=== PATIENT | male | born 1995 | race Caucasian/White ===

== ENCOUNTER 2023-12-23 23:44 | Inpatient (IN) | payer OTHER, SELFPAY ==
[2023-12-23 20:24] VITALS: BP 146/95
[2023-12-23 21:21] LABS: % Basophils 0.4 % (0-2); % Eosinophils 0.9 % (0-6); % Immature Granulocytes 0.3 % (0-0.5); % Lymphocytes 16.5 % (20.5-51.1); % Monocytes 6.3 % (1.7-9.3); % Neutrophils 75.6 % (42.2-75.2); Absolute Eosinophils 0.1 10^3/uL (0-0.7); Absolute Lymphocytes 1.7 10^3/uL (1.2-3.4); Absolute Monocytes 0.7 10^3/uL (0.1-0.6); Absolute Neutrophils 7.9 10^3/uL (1.4-6.5); Hematocrit 45.6 % (39.0-52.0); Hemoglobin 15.9 g/dL (13.0-18.0); Mean Corp Hgb Conc. 34.9 g/dL (33.0-37.0); Mean Corpuscular Hgb 31.5 pg (27.0-31.0); Mean Corpuscular Volume 90.3 fL (80.0-94.0); Mean Platelet Volume 10.5 fL (7.4-10.4); Nucleated Red Blood Cells % 0 % (-); Platelet Count 221 10^3/uL (130-400); Red Blood Cell Count 5.05 10^6/uL (4.70-6.10); Red Cell Dist. Width 12.9 % (11.5-14.5); White Blood Cell Count 10.4 10^3/uL (4.8-10.8)
[2023-12-23 21:28] VITALS: BP 135/70
[2023-12-23 21:31] LABS: INR 1.21; PT 15.3 Sec (11.4-14.6)
[2023-12-23 21:32] LABS: APTT 31.9 Sec (23.4-35.0)
[2023-12-23 21:36] LABS: ALT (SGPT) 44 U/L (0-50); AST (SGOT) 35 U/L (17-59); Albumin 3.9 g/dl (3.5-5.0); Alkaline Phosphatase 64 U/L (38-126); Blood Urea Nitrogen 22 mg/dl (9-20); Calcium 9.1 mg/dl (8.4-10.2); Carbon Dioxide 27 mmol/L (22-30); Chloride 98 mmol/L (98-107); Glucose 123 mg/dl (70-99); Potassium 4.1 mmol/L (3.5-5.1); Sodium 131 mmol/L (135-145); Total Bilirubin 0.8 mg/dl (0.2-1.3); eGFR > 60.00
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
[2023-12-23] MEDS: NSS 1000 IV (23:00)
[2023-12-23] MEDS: DILAUDID 1 MG IV (23:02)
[2023-12-23 23:17] VITALS: BMI 28.3
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
[2023-12-23] MEDS: HEPARIN 7400 UNITS IV (23:53)
[2023-12-24] VITALS (8 sets, daily range): BP systolic 109–145; BP diastolic 46–88; BMI 28.6
[2023-12-24] MEDS: HEPARIN 25000 UNITS/250 ML IV
[2023-12-24] MEDS: BENADRYL 50 MG IV (00:31)
[2023-12-24] MEDS: PEPCID 20 MG IV (00:31)
[2023-12-24] MEDS: DECADRON 10 MG IV (00:36)
[2023-12-24] MEDS: XOPENEX 1.25 MG INHALANT SOLUTION INH (00:38)
[2023-12-24] MEDS: ZOFRAN 4 MG IV (00:38)
--- NOTE | 2023-12-24 00:38 | W.PN.UPDATE ---
Update Note
Progress Note Update
immediately following heparin bolus patient turned bright red and stated he was having increasing chest pain. He became bradycardic to 40's in setting of significant nausea then tachycardic with EKG showing afib. BP stable.
concern for allergic reaction following heparin triggering vasovagal reaction and then atrial fibrillation. patient clenched and anxious. Oxygen needs up to 6L.
EKG confirming atrial fibrillation.
-benadryl/pepcid/decadron given now
-levalbuterol x 1
-with afib to RVR in 160's, no lip swelling or wheezing will avoid IM epi; BP stable
-discussed with pharmacy, want to avoid heparin products given this reaction. Given PE is subsegmental, will order Eliquis now. Per pharmacy OK to given Eliquis now with timing post bolus as is very short acting.
-IV metop given afib with RVR to 160's
-add on TSH, TTE
-continue Eliquis
-heparin listed as an allergy
-monitor closely if need for repeat CT although initial showed subsegmental, doubt significant extension; no e/o LE swelling.
Total Critical Care Time 45 minutes. I was immediately available to the patient and staff. I personally examined, reviewed labs, diagnostic images/reports, interpretations, treatment plans, discussed patient care with other providers and family
or caregivers (if patient is unable to make decisions), entered orders as appropriate and documented the medical record.
[2023-12-24] MEDS: DILAUDID 0.5 MG IV (00:39)
[2023-12-24] MEDS: NSS 500 IV (00:42)
[2023-12-24] MEDS: PROTONIX IV 40 MG IV (00:48)
[2023-12-24] MEDS: LOPRESSOR 5 MG IV (00:48)
[2023-12-24] MEDS: ELIQUIS 10 MG PO ×3 (01:23→20:11)
--- NOTE | 2023-12-24 01:28 | PTCARENOTE ---
Pt arrived from ED via wheelchair and was able to stand and pivot to bed. Pt AAOx3, in afib on tele monitor, hr 140's. Converted into sinus tach after 5 minutes hr maintaining 100's. Pt sating 88% on rm, RN applied 2L NC sating 93%. Other VSS. Pt is
oriented to room resting comfortably w/ call roberts within reach.
[2023-12-24] MEDS: PERCOCET 5/325 1 TABLET PO ×2 (02:07→17:33)
--- NOTE | 2023-12-24 08:05 | W.PN.UPDATE ---
Update Note
Progress Note Update
I am aware of PE--pt seen this am
Pt comfortable now
R MARCE Gibson and I
Please leave this on until seen by me next week
Thanks
GGMD
[2023-12-24 08:20] LABS: Hematocrit 42.5 % (39.0-52.0); Hemoglobin 14.6 g/dL (13.0-18.0); Mean Corp Hgb Conc. 34.4 g/dL (33.0-37.0); Mean Corpuscular Hgb 31.3 pg (27.0-31.0); Mean Corpuscular Volume 91.2 fL (80.0-94.0); Red Blood Cell Count 4.66 10^6/uL (4.70-6.10); Red Cell Dist. Width 13.1 % (11.5-14.5); White Blood Cell Count 9.4 10^3/uL (4.8-10.8)
[2023-12-24 08:33] LABS: Blood Urea Nitrogen 22 mg/dl (9-20); Calcium 9.3 mg/dl (8.4-10.2); Carbon Dioxide 24 mmol/L (22-30); Chloride 103 mmol/L (98-107); Estimated Creatinine Clearance 97 ml/min; Glucose 130 mg/dl (70-99); Potassium 5.1 mmol/L (3.5-5.1); Sodium 136 mmol/L (135-145); eGFR > 60.00
[2023-12-24 09:20] LABS: Mean Platelet Volume 10.6 fL (7.4-10.4)
[2023-12-24 09:21] LABS: Platelet Count 90 10^3/uL (130-400)
[2023-12-24] MEDS: APRESOLINE 10 MG PO (09:32)
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
[2023-12-24] MEDS: HYDROPHOR 1 APPLIC TOPICAL (11:03)
--- NOTE | 2023-12-24 12:05 | PTCARENOTE ---
Patient's IV hanging out of left AC. IV removed and band-aid placed. Patient refuses to have another IV line placed.
[2023-12-24] MEDS: LOPRESSOR 12.5 MG PO ×2 (13:47→20:11)
--- NOTE | 2023-12-24 14:17 | VNURNOTE ---
Home Health Liaison met with patient and mom at 1245 to discuss [facility] nurse/therapy, visits, schedule and homebound status. Patient is agreeable and understands that visits at home will be 2-3 x per week to assess and teach medical management
although reluctant. Patient's mother is most interested because now patient is home and she is overwhelmed.
[facility] brochure provided with contact information. Patient is aware that [facility] will contact them for start of care in 1-2 days after discharge from .
[facility] referral completed in [facility]
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
--- NOTE | 2023-12-24 17:47 | PTCARENOTE ---
Went into patient's room because tele monitor was off. Mother in room. Mother states he is in shower. Came back to attempt to put tele monitor back on and patient refused. Tech went in later to place tele monitor and patient adamantly refused.
Salvador made aware.
--- NOTE | 2023-12-24 20:05 | PTCARENOTE ---
Patient did not supply urine specimen today. Patient using bathroom. Patient is aware that a urine specimen is needed.
[2023-12-25 03:57] VITALS: BP 132/68
[2023-12-25] MEDS: PERCOCET 5/325 1 TABLET PO (06:25)
[2023-12-25 06:48] LABS: Hematocrit 43.9 % (39.0-52.0); Hemoglobin 15.1 g/dL (13.0-18.0); Mean Corp Hgb Conc. 34.4 g/dL (33.0-37.0); Mean Corpuscular Hgb 31.3 pg (27.0-31.0); Mean Corpuscular Volume 91.1 fL (80.0-94.0); Mean Platelet Volume 11.2 fL (7.4-10.4); Platelet Count 153 10^3/uL (130-400); Red Blood Cell Count 4.82 10^6/uL (4.70-6.10); Red Cell Dist. Width 12.9 % (11.5-14.5); White Blood Cell Count 10.6 10^3/uL (4.8-10.8)
[2023-12-25 06:53] LABS: APTT 31.6 Sec (23.4-35.0)
[2023-12-25] MEDS: ELIQUIS 10 MG PO (07:31)
[2023-12-25] MEDS: LOPRESSOR 12.5 MG PO (07:31)
[2023-12-25] MEDS: HYDROPHOR 1 APPLIC TOPICAL (07:32)
[2023-12-25 07:57] VITALS: BP 129/65
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
--- NOTE | 2023-12-25 10:07 | W.DS.TRANS ---
DC Summary - [employer]
-
Discharge Instructions:
Discharge Diagnosis/Procedures Pulmonary embolism.
Paroxysmal atrial fibrillation.
Diet Regular
Instructions:
Stand-Alone Forms:
Changes to Home Medications: Yes
Discharge Medications:
DC Medications w/original date entered in [facility]
Vitamin C 1 tab PO DAILY Supplement 12/23/23
baclofen 2 tab PO Q4HPRN PRN moderate pain 12/23/23
gabapentin 4 tab PO Q4HPRN PRN moderate pain 12/23/23
oxycodone-acetaminophen 5 mg-325 mg tablet 1 tab PO Q4HPRN PRN moderate to severe pain 12/23/23
apixaban 5 mg tablet (Eliquis) 10 mg (2 x 5 mg) PO BID #90 tabs 12/24/23
metoprolol tartrate 25 mg tablet 12.5 mg (1/2 x 25 mg) PO BID #60 tabs 12/24/23
Home Medication Changes
Metoprolol, Eliquis.
Pending Results: No
--- NOTE | 2023-12-25 10:49 | PTCARENOTE ---
Reviewed discharge instructions with patient. Patient verbalizes understanding and denies questions at this time. Case management notified to check the cost of Eloquis. Medication sheets given yesterday on Eloquis and Topral. Denies further
questions about medications.
== END 2023-12-25 11:00 | disposition home health service (06) | DRG 176 ==
LOC: 4 EAST ACU 23:44
PROVIDERS: Physician Assistant Medical; ADMITTING PHYSICIAN Student in an Organized Health Care Education/Training Program; ATTENDING PHYSICIAN Internal Medicine; EMERGENCY PHYSICIAN Emergency Medicine; FAMILY PHYSICIAN Internal Medicine
DX: I26.99 Other pulmonary embolism without acute cor pulmonale (principal); R07.81 Pleurodynia; I10 Essential (primary) hypertension; I48.0 Paroxysmal atrial fibrillation; V29.99XA Rider (driver) (passenger) of other motorcycle injured in unspecified traffic accident, initial encounter; Y93.9 Activity, unspecified; Y92.410 Unspecified street and highway as the place of occurrence of the external cause; R61 Generalized hyperhidrosis
CPT/HCPCS: 71275; 80048; 80053; 84443; 85025; 85027; 85610; 85730; 87040; 87070; 93005; 93306; 93970; 96361; 96365; 96375; 99285; Q9967

== ENCOUNTER → 2024-07-18 06:24 | Day surgery (SDC) | payer OTHER, SELFPAY | LOC: SDS 06:24 | PROVIDERS: ATTENDING PHYSICIAN Orthopaedic Surgery Hand Surgery; FAMILY PHYSICIAN General Practice | DX: T84.84XA Pain due to internal orthopedic prosthetic devices, implants and grafts, initial encounter (principal); Y83.1 Surgical operation with implant of artificial internal device as the cause of abnormal reaction of the patient, or of later complication, without mention of misadventure at the time of the procedure; Z53.9 Procedure and treatment not carried out, unspecified reason | CPT/HCPCS: 20680 ==

== ENCOUNTER 2024-07-27 07:33 | Inpatient (IN) | payer OTHER, SELFPAY ==
[2024-07-25] VITALS (13 sets, daily range): BP systolic 107–135; BP diastolic 61–81; BMI 27.1
[2024-07-25 13:12] LABS: Hemoglobin 16.9 g/dL (13.0-18.0); Mean Corpuscular Hgb 31.9 pg (27.0-31.0); Mean Corpuscular Volume 88.7 fL (80.0-94.0); Mean Platelet Volume 11.2 fL (7.4-10.4); Platelet Count 235 10^3/uL (130-400); Red Cell Dist. Width 13.2 % (11.5-14.5)
[2024-07-25 13:40] LABS: C-Reactive Protein < 5.00 mg/L (0.0-10.00)
[2024-07-25 14:07] LABS: Blood Urea Nitrogen 16 mg/dl (9-20); Calcium 10.1 mg/dl (8.4-10.2); Carbon Dioxide 28 mmol/L (22-30); Chloride 104 mmol/L (98-107); Estimated Creatinine Clearance 115 ml/min; Glucose 90 mg/dl (70-99); Potassium 4.7 mmol/L (3.5-5.1); Sodium 143 mmol/L (135-145); eGFR > 60.00
[2024-07-25 14:55] LABS: Erythrocyte Sed Rate 8 mm/hour (0-20)
[2024-07-25] MEDS: DILAUDID 0.25 MG IV (17:44)
[2024-07-25] MEDS: VANCOCIN 200 IV (19:47)
[2024-07-25] MEDS: NORMOSOL-R/PLASMALYTE-A 1000 IV (19:49)
[2024-07-25] MEDS: DILAUDID 0.5 MG IV (22:01)
[2024-07-26 00:15] VITALS: BP 109/64
[2024-07-26] MEDS: ROXICODONE 10 MG PO ×3 (01:01→21:50)
[2024-07-26 03:15] VITALS: BP 117/62
[2024-07-26] MEDS: DILAUDID 0.5 MG IV (03:52)
[2024-07-26] MEDS: ZOFRAN 4 MG IV (04:48)
[2024-07-26] MEDS: NORMOSOL-R/PLASMALYTE-A 1000 IV ×2 (04:58→14:22)
--- NOTE | 2024-07-26 06:59 | PTCARENOTE ---
pt with an episode of vomiting during the shift and he was treated with Zofran and pt stated he felt better. Pt did have a few meals last night before his episode of vomiting and zofran eased his stomach
[2024-07-26 07:40] VITALS: BP 117/60
--- NOTE | 2024-07-26 07:43 | W.PN.UPDATE ---
Update Note
Progress Note Update
Slight numbness thumb tip
Comforable with IV pain meds
VSS
Dressing D and I
Otherwise R UE NVI
All hardware was removed and bone and soft tissue debrided
Prelim GS neg
Definite deep infection involving plate and screws/Bone
Bone path pending (was take from area of suspected bone infection--all areas of suspected bone infection debrided)
Suspect bone path with be positive for osteomyelitis
Suspect will need long term care administrator antibiotics as per ID (who are consulted)
Route of antibx will have to be decided given that patient is incarcerated
Will need reconstructive surgery in future once infection cleared
thanks
GGMD
[2024-07-26] MEDS: VANCOCIN 200 IV (09:51)
[2024-07-26 10:29] VITALS: BP 128/69
--- NOTE | 2024-07-26 14:06 | CM ---
Reviewed chart, patient from intermediate. Will return at discharge # for report [phone] fax [phone]. Will watch for IV ABX needs.
Plan: Case management will continue to follow and assist with discharge planning. Back to [facility] when patient is medically stable.
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
--- NOTE | 2024-07-26 15:11 | PHA.VAN.IN ---
Assessment
- Assessment
Renal Function: Appears similar to baseline
AUC Dosing Plan
- Dosing Variables
Dosing Weight (kg): 88
Dosing CrCl (ml/min): 115
Vd coefficient (L/kg): 0.7
- Empiric Dosing
Initial / Loading Dose: received 2 doses of Vanc 1000mg x2 07/25 19:47 and 07/26 09:51
Maintenance Regimen: Vanc 1250mg Q12H starting 07/27 0600
Estimated AUC (mcg*h/mL): 437
Estimated Peak (mcg*h/mL): 29.1
Estimated Trough (mcg/ml): 10.2
Estimated Half Life (H): 6.9
Give 1500mg x1 at 1800 since did not receive loading dose
- Monitoring
No levels ordered at this time: consider levels in next few days
Pharmacokinetics Vancomycin I
- -
Patient Age: 29
Patient Sex: Male
Vancomycin Day #: 1
Indication: Bone And Joint
Requesting Provider: Dr. Purcell
Pertinent Antimicrobial Allergies:
no pertinent antibiotic allergies
Height / Weight:
Height 5 ft 11 in
Actual Weight 88.025 kg
- Vital Signs / Lab Results
Temp Pulse Resp BP Pulse Ox
97.8 F 80 17 128/69 97
07/26/24 10:29 07/26/24 10:29 07/26/24 10:29 07/26/24 10:29 07/26/24 10:29
Lab Results - Hematology
07/25/24
12:55
WBC 5.0
Lab Results - Chemistry
07/25/24 07/25/24
12:55 13:43
BUN Cancelled 16
Creatinine Cancelled 1.0
Estimated Creat Clear Cancelled 115
Microbiology Results
07/25/24 16:30 Anaerobic Culture - Preliminary
Surgical Wound Culture pending. Anaerobic cultures are examined after 3
days incubation. Additional information to follow.
07/25/24 16:30 Wound Culture - Preliminary
Surgical Wound No growth
Gram Stain - Preliminary
[2024-07-26 15:48] VITALS: BP 121/59
[2024-07-26] MEDS: VANCOCIN 530 MG IV (17:21)
[2024-07-26] MEDS: ELIQUIS 10 MG PO (21:51)
[2024-07-26 23:35] VITALS: BP 125/65
[2024-07-27] MEDS: NORMOSOL-R/PLASMALYTE-A 1000 IV (03:28)
[2024-07-27] MEDS: VANCOCIN 275 MG IV ×2 (06:35→17:50)
[2024-07-27] MEDS: ROXICODONE 10 MG PO ×2 (06:48→21:06)
[2024-07-27 07:15] VITALS: BP 121/70
--- NOTE | 2024-07-27 07:46 | W.PN.UPDATE ---
Update Note
Progress Note Update
Having pain controlled with IV analgesics
Vital signs stable
Dressing dry and intact slight numbness to tip of thumb otherwise NVI
Cultures thus far are negative
Once plan formulated by infectious disease service for outpatient antibiotics will be discharged
Continue IV antibiotics and pain control at present
Definite bony involvement/osteomyelitis surgically so does not need long-term antibiotics as per ID
HODA PATEL
--- NOTE | 2024-07-27 07:55 | W.PN.UPDATE ---
Addendum entered and electronically signed by Logan Purvis MD 07/27/24 13:20:
THIS NOTE WAS DICTATED BY ME IN THE WRONG PATIENTS CHART
GGMD
Original Note:
Update Note
Progress Note Update
Pt seen and chart reviewed
L knee more of a bruise than cellulitis I feel--and minimal clinical effusion
Also aspirate essentially negative//Xrays neg for fx as well
I do not feel there is an acute problem with her L knee
Will see again prn
thanks
GGMD
[2024-07-27] MEDS: ELIQUIS 10 MG PO ×2 (09:07→20:59)
--- NOTE | 2024-07-27 09:11 | PHA.VAN.FU ---
Vancomycin Assessment / Plan
- Assessment
Renal Function: No New Labs Today
In the past 24 hrs, patient has been: Afebrile
- Dosing Plan
Continue: Vanc 1250mg Q12H
- Monitoring Plan
No level(s) ordered at this time: consider levels in next few days
- Follow Up
Pharmacy will continue to follow.
Vancomycin Follow UP
- -
Patient Age: 29
Patient Sex: Male
Vancomycin Day #: 2
Indication: Bone And Joint
Requesting Provider: Dr. Purcell
Pertinent Antimicrobial Allergies:
no pertinent antibiotic allergies
Height / Weight:
Height 5 ft 11 in
Actual Weight 88.025 kg
- Vital Signs / Lab Results
Temp Pulse Resp BP Pulse Ox
97.6 F 53 18 121/70 99
07/27/24 07:15 07/27/24 07:15 07/27/24 07:15 07/27/24 07:15 07/27/24 07:15
Lab Results - Hematology
07/25/24
12:55
WBC 5.0
Lab Results - Chemistry
07/25/24 07/25/24
12:55 13:43
BUN Cancelled 16
Creatinine Cancelled 1.0
Estimated Creat Clear Cancelled 115
Microbiology Results
07/25/24 16:30 Wound Culture - Preliminary
Surgical Wound Gram Stain - Preliminary
07/25/24 16:30 Anaerobic Culture - Preliminary
Surgical Wound Culture pending. Anaerobic cultures are examined after 3
days incubation. Additional information to follow.
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
--- NOTE | 2024-07-27 15:03 | CM ---
Spoke with Alissa FORD at [facility] who stated to call her with any updates or if patient needs IV ABX upon return. [phone].
Plan: Case management will continue to follow and assist with discharge planning. Back to [facility]. Will watch for needs.
[2024-07-27 23:56] VITALS: BP 132/70
[2024-07-28] MEDS: VANCOCIN 275 MG IV ×2 (06:45→18:11)
--- NOTE | 2024-07-28 06:56 | W.PN.UPDATE ---
Update Note
Progress Note Update
More comfortable today
Vital signs stable
Dressing D&I no change in neurovascular status
Cultures still pending
Plan is for discharge tomorrow with recommendations as per infectious disease service
HODA PATLE
[2024-07-28 07:00] VITALS: BP 127/70
[2024-07-28] MEDS: ELIQUIS 10 MG PO ×2 (08:07→21:10)
--- NOTE | 2024-07-28 09:08 | PHA.VAN.FU ---
Vancomycin Assessment / Plan
- Assessment
Renal Function: No New Labs Today
In the past 24 hrs, patient has been: Afebrile
- Dosing Plan
Continue: Vanc 1250mg Q12H
- Monitoring Plan
Peak Level: 07/28 21:30 - draw ~2H after end of 1.5H infusion
Trough Level: 07/29 05:30
Monitoring Comments: levels to be drawn after 4th maintenance dose
- Follow Up
Pharmacy will continue to follow.
Vancomycin Follow UP
- -
Patient Age: 29
Patient Sex: Male
Vancomycin Day #: 3
Indication: Bone And Joint
Requesting Provider: Dr. Purcell
Pertinent Antimicrobial Allergies:
no pertinent antibiotic allergies
Height / Weight:
Height 5 ft 11 in
Actual Weight 88.025 kg
- Vital Signs / Lab Results
Temp Pulse Resp BP Pulse Ox
97.6 F 54 16 127/70 97
07/28/24 07:00 07/28/24 07:00 07/28/24 07:00 07/28/24 07:00 07/28/24 07:00
Lab Results - Hematology
07/25/24
12:55
WBC 5.0
Lab Results - Chemistry
07/25/24 07/25/24
12:55 13:43
BUN Cancelled 16
Creatinine Cancelled 1.0
Estimated Creat Clear Cancelled 115
Microbiology Results
07/25/24 16:30 Wound Culture - Preliminary
Surgical Wound Staph aureus MRSA
Gram Stain - Preliminary
07/25/24 16:30 Anaerobic Culture - Preliminary
Surgical Wound Culture pending. Anaerobic cultures are examined after 3
days incubation. Additional information to follow.
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
[2024-07-28 15:00] VITALS: BP 129/70
--- NOTE | 2024-07-28 15:32 | VATNOTE ---
Called to assess right arm swelling, noted swelling below IV site including wrist and hand recommend RUE US to R/O DVT
--- NOTE | 2024-07-28 19:41 | W.PN.UPDATE ---
Update Note
Progress Note Update
Plan is for transfer to half-way with PICC line sunday 07/29
thanks
HODAMD
[2024-07-28 22:12] LABS: Vancomycin Peak 16.6 ug/ml (18-26)
[2024-07-28 23:00] VITALS: BP 134/72
[2024-07-29 06:14] LABS: Vancomycin Trough 6.5 ug/ml (5-20)
[2024-07-29 06:18] LABS: Blood Urea Nitrogen 18 mg/dl (9-20); Estimated Creatinine Clearance > 125 ml/min
[2024-07-29] MEDS: VANCOCIN 275 MG IV ×2 (06:38→13:46)
[2024-07-29] MEDS: FLUSH (NSS) 1 FLUSH IV (06:40)
--- NOTE | 2024-07-29 07:30 | W.PN.UPDATE ---
Update Note
Progress Note Update
Plan is for DC back to [facility] today on IV antibx
All discharge instructions/orders completed
Have F/U with me in about 7-10 days
thanks
GGMD
[2024-07-29 07:40] VITALS: BP 139/75
[2024-07-29] MEDS: ELIQUIS 10 MG PO (07:52)
--- NOTE | 2024-07-29 07:52 | PHA.VAN.FU ---
Vancomycin Assessment / Plan
- Assessment
Renal Function: Stable
In the past 24 hrs, patient has been: Afebrile
Concomitant Antimicrobials: none
- Assessment - Therapeutic Drug Monitoring
Extrapolated Cmax (mcg/mL): 21.3
Peak level was drawn: Appropriately
Extrapolated Cmin (mcg/mL): 6.0
Trough Drawn: Appropriately
Levels were drawn: At steady state
Calculated AUC (mcg*h/mL): 295
Calculated ke: 0.1202
Calculated half life (H): 5.8
Calculated Vd (L): 70.24
Calculated Vanc CL (ml/min): 140.72
- Dosing Plan
Adjust Regimen to: 1250 mg q8h - next dose at 1400 today
New Regimen Predicts: AUC (484), Peak (28.8), Trough (13.2)
- Monitoring Plan
No level(s) ordered at this time: consider repeat levels in a few days
- Follow Up
Pharmacy will continue to follow.
Vancomycin Follow UP
- -
Patient Age: 29
Patient Sex: Male
Vancomycin Day #: 4
Indication: Bone And Joint
Requesting Provider: Dr. Purcell
Pertinent Antimicrobial Allergies:
no pertinent antibiotic allergies
Height / Weight:
Height 5 ft 11 in
Actual Weight 88.025 kg
- Vital Signs / Lab Results
Temp Pulse Resp BP Pulse Ox
97.7 F 59 17 139/75 97
07/28/24 23:00 07/29/24 07:40 07/29/24 07:40 07/29/24 07:40 07/29/24 07:40
Lab Results - Chemistry
07/29/24
05:34
BUN 18
Creatinine 0.8
Estimated Creat Clear > 125
Microbiology Results
07/25/24 16:30 Anaerobic Culture - Preliminary
Surgical Wound Culture pending. Anaerobic cultures are examined after 3
days incubation. Additional information to follow.
07/25/24 16:30 Wound Culture - Preliminary
Surgical Wound Staph aureus MRSA
Gram Stain - Preliminary
Therapeutic Drug Monitoring
Vancomycin Peak 16.6 ug/ml (18-26) L 07/28/24 21:46
Vancomycin Trough 6.5 ug/ml (5-20) 07/29/24 05:34
--- NOTE | 2024-07-29 09:20 | PN.CDI ---
CDI
- -
CDI:
Physician Documentation Request
Admit Date: 07/27/24 07:33
Dear Doctor Jazzy,
Patient admitted with right wrist infection.
07/26 Infectious Disease consult: 'This was lanced by a nurse at the long-term, and cultures revealed MRSA. He was placed on a course of antibiotics for 2 weeks. He then went on another course of biotics for 2 weeks and finally was placed on
doxycycline which she has been on until 1 week ago. He also admits to the development of a draining wound on the inferior forearm area with initial drainage of serous fluid, then ultimately became more purulent.'
07/28 Infectious Disease PN: 'Suspected right wrist/forearm osteomyelitis'
Clarify which of the following accurately represents the acuity of the suspected osteomyelitis. Possible options might include:
____ Acute
Chronic
____ Other
Use of terms such as suspected, likely, concern for, or probable (associated with a specific diagnosis that is being evaluated, monitored, or treated as if it exists) are acceptable and can be coded in the inpatient setting, when documented at the
time of discharge.
Thank you,
Adilene Barrientos RN, BSN
CDI Specialist
Available via [place] text
Please use your independent medical judgment in providing your response.
--- NOTE | 2024-07-29 12:18 | CM ---
Reviewed chart, patient medically cleared for discharge. Spoke with RN who stated that patient will be discharged on IV ABX. Script obtained from ID. Patient being discharged on IV Vanco 1250 mg IV q8. Picc placed yesterday. End date 09/20. RN called
[facility] and spoke with RN who confirmed that they have the medication to provide to patient today. Per RN, no concerns were expressed about course of treatment.
Plan: Case management will continue to follow and assist with discharge planning. Back to assisted on IV ABX.
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
[2024-07-29 14:58] VITALS: BP 124/67
== END 2024-07-29 15:50 | DRG 511 ==
LOC: 3 WEST ACU 07:33
PROVIDERS: Internal Medicine Infectious Disease; ADMITTING PHYSICIAN Orthopaedic Surgery Hand Surgery
PROC: 0PBH0ZZ Excision of Right Radius, Open Approach (ICD-10-PCS; 2024-07-25)
DX: T84.612A Infection and inflammatory reaction due to internal fixation device of right radius, initial encounter (principal); M86.631 Other chronic osteomyelitis, right radius and ulna; Y83.8 Other surgical procedures as the cause of abnormal reaction of the patient, or of later complication, without mention of misadventure at the time of the procedure
CPT/HCPCS: 88304; 88311; 71045; 80048; 80202; 82565; 84520; 85027; 85652; 86140; 87070; 87075; 87147; 87186; 87205

== ENCOUNTER 2024-10-21 14:03 | Outpatient (RCR) | payer OTHER, SELFPAY | END 2024-10-21 23:59 | disposition home or self-care (01) | LOC: ROT 14:03 | PROVIDERS: ATTENDING PHYSICIAN Orthopaedic Surgery Hand Surgery; FAMILY PHYSICIAN General Practice | DX: S52.501D Unspecified fracture of the lower end of right radius, subsequent encounter for closed fracture with routine healing (principal); S62.001D Unspecified fracture of navicular [scaphoid] bone of right wrist, subsequent encounter for fracture with routine healing; Z73.6 Limitation of activities due to disability | CPT/HCPCS: 97022; 97110; 97140; 97166; 97535 ==

== ENCOUNTER 2024-11-16 09:01 | Outpatient (RCR) | payer OTHER, SELFPAY | END 2024-11-16 23:59 | disposition home or self-care (01) | LOC: ROT 09:01 | PROVIDERS: ATTENDING PHYSICIAN Orthopaedic Surgery Hand Surgery; FAMILY PHYSICIAN General Practice | DX: S52.501D Unspecified fracture of the lower end of right radius, subsequent encounter for closed fracture with routine healing (principal); S62.001D Unspecified fracture of navicular [scaphoid] bone of right wrist, subsequent encounter for fracture with routine healing; Z73.6 Limitation of activities due to disability | CPT/HCPCS: 97018; 97022; 97110; 97140 ==

== ENCOUNTER 2024-11-23 09:01 | Outpatient (RCR) | payer OTHER, SELFPAY | END 2024-11-23 23:59 | disposition home or self-care (01) | LOC: ROT 09:01 | PROVIDERS: ATTENDING PHYSICIAN Orthopaedic Surgery Hand Surgery; FAMILY PHYSICIAN General Practice | DX: S52.501D Unspecified fracture of the lower end of right radius, subsequent encounter for closed fracture with routine healing (principal); Z47.89 Encounter for other orthopedic aftercare (principal); S62.001D Unspecified fracture of navicular [scaphoid] bone of right wrist, subsequent encounter for fracture with routine healing; Z73.6 Limitation of activities due to disability; V29.99XD Rider (driver) (passenger) of other motorcycle injured in unspecified traffic accident, subsequent encounter; Z86.14 Personal history of Methicillin resistant Staphylococcus aureus infection | CPT/HCPCS: 97018; 97110; 97140 ==

== ENCOUNTER 2024-11-28 06:11 | Inpatient (IN) | payer OTHER, SELFPAY ==
[2024-11-28] VITALS (12 sets, daily range): BP systolic 96–135; BP diastolic 55–86
[2024-11-28 06:54] LABS: Hemoglobin 16.3 g/dL (13.0-18.0); Mean Corp Hgb Conc. 36.2 g/dL (33.0-37.0); Mean Corpuscular Hgb 31.8 pg (27.0-31.0); Mean Corpuscular Volume 87.7 fL (80.0-94.0); Mean Platelet Volume 10.4 fL (7.4-10.4); Platelet Count 225 10^3/uL (130-400); Red Blood Cell Count 5.13 10^6/uL (4.70-6.10); White Blood Cell Count 5.7 10^3/uL (4.8-10.8)
[2024-11-28] MEDS: VANCOCIN 200 IV ×2 (06:55→19:25)
[2024-11-28] MEDS: NORMOSOL-R/PLASMALYTE-A 1000 IV ×2 (06:59→11:54)
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
[2024-11-28] MEDS: ROXICODONE 5 MG PO (19:50)
[2024-11-28] MEDS: ROXICODONE 10 MG PO (23:51)
[2024-11-29] MEDS: ROXICODONE 10 MG PO ×4 (03:58→19:36)
[2024-11-29 07:00] VITALS: BP 124/65
[2024-11-29 07:50] LABS: Hematocrit 41.4 % (39.0-52.0); Hemoglobin 14.4 g/dL (13.0-18.0)
--- NOTE | 2024-11-29 07:53 | CM ---
CM reviewed medical records. Patient is currently incarcerated at [facility]. CM spoke with Medical Unit at [facility]. They are requesting discharge instructions be faxed. CM will continue to follow as needed.
PLAN: Return to [facility]
[2024-11-29 08:03] LABS: Blood Urea Nitrogen 16 mg/dl (9-20); Calcium 9.4 mg/dl (8.4-10.2); Carbon Dioxide 26 mmol/L (22-30); Chloride 106 mmol/L (98-107); Estimated Creatinine Clearance > 125 ml/min; Glucose 139 mg/dl (70-99); Potassium 4.3 mmol/L (3.5-5.1); Sodium 140 mmol/L (135-145); eGFR > 60.00
--- NOTE | 2024-11-29 08:10 | W.PN.UPDATE ---
Update Note
Progress Note Update
No c/o
VSS
R UE intact cap refill
still numb from block
Pain MGT today
Possbile DC to long term tomorrow depending on pain level
Discussed with mother
GGMD
[2024-11-29] MEDS: DILAUDID 0.5 MG IV (12:32)
[2024-11-29 15:00] VITALS: BP 116/66
[2024-11-29 23:11] VITALS: BP 125/74
[2024-11-30] MEDS: ROXICODONE 10 MG PO ×3 (00:05→10:22)
--- NOTE | 2024-11-30 06:37 | W.PN.UPDATE ---
Update Note
Progress Note Update
More comfortable today
VSS
[facility]
Leave both dressings on and dry
F/u with me in ~7-10days
GGMD
[2024-11-30 07:08] VITALS: BP 118/57
--- NOTE | 2024-11-30 07:21 | CM ---
CM reviewed medical records. Patient medically ready for discharge.
PLAN:
[facility]
[2024-11-30 11:00] VITALS: BP 122/60
== END 2024-11-30 12:26 | DRG 512 ==
LOC: 2 NORTH 06:11
PROVIDERS: ADMITTING PHYSICIAN Orthopaedic Surgery Hand Surgery
PROC: 0QB30ZZ Excision of Left Pelvic Bone, Open Approach (ICD-10-PCS; 2024-11-28)
PROC: 0PUH07Z Supplement Right Radius with Autologous Tissue Substitute, Open Approach (ICD-10-PCS; 2024-11-28)
PROC: 0PSH04Z Reposition Right Radius with Internal Fixation Device, Open Approach (ICD-10-PCS; 2024-11-28)
DX: S52.501P Unspecified fracture of the lower end of right radius, subsequent encounter for closed fracture with malunion (principal); X58.XXXD Exposure to other specified factors, subsequent encounter
CPT/HCPCS: 80048; 85014; 85018; 85027; 97162; 97166

== ENCOUNTER 2025-01-11 15:58 | Outpatient (RCR) | payer OTHER, SELFPAY | END 2025-01-11 23:59 | disposition home or self-care (01) | LOC: ROT 15:58 | PROVIDERS: ATTENDING PHYSICIAN Orthopaedic Surgery Orthopaedic Trauma; FAMILY PHYSICIAN General Practice | DX: Z47.89 Encounter for other orthopedic aftercare (principal); S52.571D Other intraarticular fracture of lower end of right radius, subsequent encounter for closed fracture with routine healing; Z73.6 Limitation of activities due to disability; A49.02 Methicillin resistant Staphylococcus aureus infection, unspecified site | CPT/HCPCS: 97110; 97140; 97166; 97535 ==